=== PATIENT | male | born 1970 | race African-American/Black ===

== ENCOUNTER 2024-04-06 17:42 | Emergency (ER) | payer MEDICAID ==
[~2024-04-06] VITALS: Ht 190.5 cm; Wt 100.0 kg
[2024-04-06 17:50] VITALS: TEMP 98.2; O2SAT 100
[2024-04-06] MEDS ORDERED: NITROGLYCERIN 0.4MG TABLET SL SL PRN (18:30)
[2024-04-06 19:13] LABS: BASOPHILS % 1.3 % (0.0-2.0); CHLORIDE 106 mEq/L (98-107); DIFFERENTIAL COMMENT 0; EOSINOPHILS % 4.2 % (0.0-5.0); HEMOGLOBIN. 13.3 g/dL (14.0-18.0); LYMPHOCYTES % 40.5 % (20.0-50.0); MEAN CORPUSCULAR HEMOGLOBIN 30.5 pg (28.0-32.0); MEAN CORPUSCULAR HGB CONC 33.3 g/dL (31.0-37.0); MEAN CORPUSCULAR VOLUME 91.7 fL (80.0-94.0); MEAN PLATELET VOLUME 8.6 fl (7.4-10.4); MONOCYTES % 11.6 % (2.0-8.0); NEUTROPHILS % 42.4 % (40.0-76.0); PLATELET 234 x1000/uL (130-400); POTASSIUM 3.8 mEq/L (3.5-5.1); RED BLOOD CELL COUNT 4.37 mill/uL (4.7-6.1); RED CELL DISTRIBUTION WIDTH 13.4 % (11.6-14.6); SODIUM 143 mEq/L (136-145); WHITE BLOOD COUNT 3.4 x1000/uL (4.5-11.0)
[2024-04-06 19:14] LABS: CALCIUM 9.6 mg/dL (8.7-10.4); CARBON DIOXIDE 28 mEq/L (21-32)
[2024-04-06 19:19] LABS: CREATININE 1.4 mg/dL (0.6-1.3); GLUCOSE 64 mg/dL (70-105); UREA NITROGEN BLOOD 16 mg/dL (9-23)
[2024-04-06 19:20] LABS: TROPONIN I HIGH SENSITIVITY 8 ng/L (3.0-53)
[2024-04-06] MEDS: ASPIRIN 81MG TABLET PO ONE (19:45)
[2024-04-06 20:00] VITALS: BP 133/83; PULSE 82; RESP 15; O2SAT 97
== END 2024-04-06 20:51 | disposition home or self-care (01) ==
LOC: ER 17:42
DX: R07.9 Chest pain, unspecified (principal); E78.5 Hyperlipidemia, unspecified; I10 Essential (primary) hypertension
CPT/HCPCS: 80048; 83880; 85025; 84484; 36415; 71045; 93005; 99285; Z7610